=== PATIENT | female | born 1945 | race Caucasian/White ===

== ENCOUNTER 2017-07-04 07:44 | Day surgery (SDC) | payer OTHER ==
[2017-07-04] MEDS ORDERED: D5 LR 1000 ML 1,000 ML IV ONE (07:49)
[2017-07-04] MEDS ORDERED: DIPRIVAN VIAL 20 ML ONE (09:47)
[2017-07-04 10:59] VITALS: BP 177/83
== END 2017-07-04 10:25 | disposition home or self-care (01) ==
LOC: SURG1 07:44
PROVIDERS: ATTEND Internal Medicine Gastroenterology
PROC: 0DB68ZX Excision of Stomach, Via Natural or Artificial Opening Endoscopic, Diagnostic (ICD-10-PCS; principal; 2017-07-04 09:45)
PROC: 0DJ08ZZ Inspection of Upper Intestinal Tract, Via Natural or Artificial Opening Endoscopic (ICD-10-PCS; principal; 2017-07-04 09:45)
PROC: 0D757ZZ Dilation of Esophagus, Via Natural or Artificial Opening (ICD-10-PCS; principal; 2017-07-04 09:45)
DX: R13.19 Other dysphagia (principal); R10.13 Epigastric pain; K21.9 Gastro-esophageal reflux disease without esophagitis; K29.60 Other gastritis without bleeding; K20.8 Other esophagitis; K22.2 Esophageal obstruction
CPT/HCPCS: A4217; J3490; J7120